=== PATIENT | male | born 1970 | race Caucasian/White ===

== ENCOUNTER 2023-04-22 11:06 | Outpatient (CLI) | payer OTHER, SELFPAY ==
--- NOTE | ~2023-04-22 | XR_ITS ---
EXAMINATION: XR hand RT min 3V INDICATION: Arthritis, right and inflammation TECHNIQUE: Three views of the right hand are obtained. COMPARISON: None available FINDINGS: There is periarticular soft tissue swelling adjacent to the second through fifth proximal i nterphalangeal joints. There are marginal erosions at the second through fifth metacarpophalangeal nancy ints. There is no fracture. Bone alignment is normal. There is osteoarthritis at the triscaphe and fi rst carpometacarpal joints. IMPRESSION: 1. Constellation of findings suggestive of rheumatoid arthritis. Reviewed, dictated and finalized at location B. [facility] [employer]
== END 2023-04-22 11:07 | disposition home or self-care (01) ==
LOC: ANHIMG 11:08
PROVIDERS: PCP Nurse Practitioner Family; Visit Provider Internal Medicine
DX: M19.041 Primary osteoarthritis, right hand (principal)
CPT/HCPCS: 73130

== ENCOUNTER 2023-06-02 15:26 | Outpatient (CLI) | payer OTHER, SELFPAY ==
--- NOTE | ~2023-06-02 | XR_ITS ---
XR cervical spine 4-5V DATE: 06/02/2023 15:55 INDICATION: Neck pain TECHNIQUE: AP, open-mouth, lateral and flexion and extension lateral views COMPARISON: None FINDINGS: C1 and C2 are normally aligned and the odontoid process is intact. No fracture or dislocati on or locked facet or prevertebral soft tissue swelling is detected. There is minimal retrolisthesis at C4-5 and C5-C6 which is stable in flexion, extension and neutral. No cervical instability is noted. There is anterior spurring at C4-5, C5-6 and prominent posterior spurring at C6-7. IMPRESSION: Mild to moderate cervical spondylosis Reviewed, dictated and finalized at location L.
== END 2023-06-02 15:27 | disposition home or self-care (01) ==
PROVIDERS: PCP Nurse Practitioner Family; Visit Provider Internal Medicine
DX: M54.2 Cervicalgia (principal); M43.02 Spondylolysis, cervical region
CPT/HCPCS: 72050

== ENCOUNTER 2023-06-11 09:55 | Outpatient (CLI) | payer OTHER, SELFPAY ==
--- NOTE | ~2023-06-11 | CT_ITS ---
CT Scan of the Chest without Contrast: Clinical Indication: Lung cancer screening, personal history of nicotine dependence Technique: Contiguous sections were acquired throughout the chest without intravenous contrast. Dose reduction technique was used on this scan by utilizing automated exposure control and iterative recon struction technique. The dose-length product (DLP) was 158.34 mGy-cm. Findings: There is no evidence of any significant mediastinal, hilar or axillary lymphadenopathy. Coronary kj ry calcium cages are present. There is no evidence of pleural or pericardial effusion. Several calcified granulomas are present. 2 mm right upper lobe pulmonary nodule present. Images through the upper abdomen reveal no abnormalities. Impression: Lung RADS 2: Benign appearance. 12 month follow-up screening CT advised. Reviewed, dictated and finalized at location . Impression: Lung RADS 2: Benign appearance. 12 month follow-up screening CT advised.
== END 2023-06-11 09:56 | disposition home or self-care (01) ==
LOC: ANHIMG 10:00
PROVIDERS: PCP Nurse Practitioner Family; Visit Provider Internal Medicine
DX: Z12.2 Encounter for screening for malignant neoplasm of respiratory organs (principal); Z87.891 Personal history of nicotine dependence
CPT/HCPCS: 71271